=== PATIENT | female | born 1960 | race Caucasian/White ===

== ENCOUNTER 2017-06-24 13:03 | Emergency (ER) | payer OTHER ==
[~2017-06-24] VITALS: Ht 160 cm; Wt 106.3 kg
[~2017-06-24 13:03] MED LIST: ASMANEX TW200 MICRO1 IH; ATENOLOL25 MG PO; AUGMENTIN875 MG PO; CIPRO500 MG PO; CLEOCIN300 MG PO; CYMBALTA30 MG PO; DUONEB 2.5-0.5 M3 ML AEROSOL; EFFEXOR XR75 MG PO; GLUCOPHAGE500 MG PO; GLUCOTROL5 MG PO; GRALISE1 EACH PO; GRALISE600 MG PO; HUMALOG100 UNIT/2 SC; HUMULIN R100 UNITS/ SC; HUMULIN R500 UNITS/ SC; HYDROCODON-ACE1 EAC8 PO; HYOSCYAMINE0.375 MG PO; INDERAL10 MG PO; KLONOPIN0.5 M1 PO; LANTUS 10100 UNITS/ SC; LEVAQUIN500 MG PO; LITHIUM CARBON300 M1 PO; LITHOBID300 MG PO; LOFIBRA,TRIGLI160 MG PO; MACROBID100 MG PO; MELOXICAM15 MG PO; METHOCARBAMOL750 MG PO; METOPROLOL TAR100 MG PO; MINIPRESS2 MG PO; MINIPRESS5 MG PO; MYSOLINE50 MG PO; NAPROSYN500 MG PO; NEURONTIN300 MG PO; NEURONTIN400 MG PO; NOHOMEMEDS; NORCO 5/3251 TABLET PO; NORCO 7.5/321 TABLET PO; PAXIL40 MG PO; PREDNISONE20 MG PO; PREDNISONE5 MG PO; PRIMIDONE50 MG PO; PROMETHAZINE HC25 M1 PO; REQUIP XL6 MG PO; RISPERDAL2 MG PO; SIMVASTATIN20 MG PO; SIMVASTATIN40 MG PO; SYMBICORT60 INHALAT IH; SYNTHROID125 MCG PO; TRAMADOL HCL50 MG PO; TYLENOL WITH C1 EACH PO; ULTRAM50 MG PO; VALIUM5 MG PO; VENLAFAXINE HCL75 M3 PO; VENTOLIN HFA18 GM IH; VICODIN,LORT1 TABLET PO; VICTOZA 2-0.6 MG/0.1 SC; VITAMIN D35000 UNIT PO; VOLTAREN 1% GE100 GM TP
[2017-06-24] MEDS ORDERED: ALBENZA200 MG PO (14:04)
[2017-06-24 14:46] VITALS: BP 119/82
== END 2017-06-24 15:06 | disposition home or self-care (01) ==
LOC: EME 13:03
DX: B80 Enterobiasis (principal); J45.909 Unspecified asthma, uncomplicated; E11.9 Type 2 diabetes mellitus without complications; Z79.4 Long term (current) use of insulin; F31.9 Bipolar disorder, unspecified; Z88.8 Allergy status to other drugs, medicaments and biological substances; Z87.891 Personal history of nicotine dependence
CPT/HCPCS: 99281; 99283